=== PATIENT | male | born 1945 | race Two or more races ===

== ENCOUNTER 2017-10-21 08:59 | Outpatient (CLI) | payer OTHER | END 2017-10-21 11:25 | disposition home or self-care (01) | LOC: RAD 501 08:59 | DX: M25.531 Pain in right wrist (principal); M25.532 Pain in left wrist; Z96.652 Presence of left artificial knee joint ==

== ENCOUNTER 2018-02-01 14:26 | Outpatient (CLI) | payer OTHER | END 2018-02-01 16:04 | disposition home or self-care (01) | LOC: RAD 501 14:26 | DX: M25.512 Pain in left shoulder (principal) ==

== ENCOUNTER 2025-04-16 11:00 | Emergency (ER) | payer OTHER ==
[~2025-04-16] VITALS: Ht 172.7 cm; Wt 78.0 kg
[2025-04-16] MEDS ORDERED: COZAAR25 MG (11:08)
[2025-04-16] MEDS ORDERED: ACETAMINOPHEN 500 MG GEL..CAP PO ONE ×2 (11:55→12:00)
[2025-04-16] MEDS ORDERED: KETOROLAC TROMETHAMINE 30 MG VIAL ONE (11:55)
[2025-04-16] MEDS ORDERED: DEXAMETHASONE SODIUM PHOSPHATE 4 MG/ML VIAL ONE (11:55)
[2025-04-16] MEDS ORDERED: DEXAMETHASONE SODIUM PHOSPHATE 4 MG/ML VIAL IM ONE (12:00)
[2025-04-16] MEDS ORDERED: KETOROLAC TROMETHAMINE 60 MG VIAL IM ONE (12:00)
[2025-04-16 12:43] LABS: BASO % 0.6 % (0.1-1.2); EOS # 0.16 (0.04-0.54); EOS % 2.1 % (0.7-7.0); LYMPH # 1.09 (1.18-3.74); LYMPH % 14.1 % (19.3-53.1); MEAN PLATELET VOLUME 12.30 fl (9.4-12.4); MONO # 0.65 (0.24-0.82); MONO % 8.4 % (4.7-12.5); NEUT # 5.78 (1.56-6.13); NEUT % 74.5 % (34.0-71.1); RED CELL DISTRIBUTION WIDTH 15.9 % (11.6-14.4)
[2025-04-16 13:17] LABS: ALT/SGPT 23.0 U/L (12-78); AST/SGOT 23.0 U/L (15-37); BILIRUBIN TOTAL 0.82 mg/dL (0.3-1.2); BUN CREA RATIO 18.0 (7.0-25.0); CREATININE SERUM 1.52 mg/dL (0.70-1.30); GFR 44.57; GLOBULINA 3.7 G/DL (2.4-3.5); GLUCOSE FASTING 161.0 mg/dL (65-100); OSMOLALITY SERUM 288.0 MOSM/KG (275-295)
[2025-04-16] MEDS ORDERED: IBU800 MG PO (15:23)
== END 2025-04-16 16:25 | disposition home or self-care (01) ==
LOC: ER 11:00
DX: M25.462 Effusion, left knee (principal); M25.562 Pain in left knee
CPT/HCPCS: 36415; 73564; 96372; 99283; J1100; J1885